=== PATIENT | male | born 1995 | race African-American/Black ===

== ENCOUNTER 2024-03-23 16:48 | Emergency (ER) | payer BC ==
[~2024-03-23] VITALS: Ht 175.3 cm; Wt 70.0 kg
[2024-03-23 16:56] VITALS: O2SAT 96
[2024-03-23 17:19] LABS: EOSINOPHILS % 0.7 % (0.0-5.0); HEMATOCRIT. 44.9 % (42.0-52.0); HEMOGLOBIN. 14.9 g/dL (14.0-18.0); LYMPHOCYTES % 30.8 % (20.0-50.0); MEAN CORPUSCULAR HEMOGLOBIN 28.2 pg (28.0-32.0); MEAN CORPUSCULAR HGB CONC 33.3 g/dL (31.0-37.0); MEAN CORPUSCULAR VOLUME 84.5 fL (80.0-94.0); MEAN PLATELET VOLUME 9.4 fl (7.4-10.4); NEUTROPHILS % 54.5 % (40.0-76.0); PLATELET 222 x1000/uL (130-400); RED BLOOD CELL COUNT 5.31 mill/uL (4.7-6.1); RED CELL DISTRIBUTION WIDTH 13.6 % (11.6-14.6); WHITE BLOOD COUNT 5.3 x1000/uL (4.5-11.0)
[2024-03-23] MEDS: LACTATED RINGERS 1,000 ML IV SCH (17:19)
[2024-03-23 17:27] LABS: CHLORIDE 107 mEq/L (98-107); SODIUM 140 mEq/L (136-145)
[2024-03-23 17:28] LABS: CALCIUM 9.5 mg/dL (8.7-10.4); CARBON DIOXIDE 29 mEq/L (21-32)
[2024-03-23 17:33] LABS: CREATININE 1.2 mg/dL (0.6-1.3); GLUCOSE 86 mg/dL (70-105); UREA NITROGEN BLOOD 11 mg/dL (9-23)
[2024-03-23 17:35] LABS: ALANINE AMINOTRANSFERASE 22 IU/L (10-49); ALBUMIN 4.6 g/dL (3.2-4.8); ASPARTATE AMINOTRANSFERASE 19 IU/L (<34); BILIRUBIN TOTAL 0.6 mg/dL (0.1-1.0); PROTEIN TOTAL 7.2 g/dL (6.0-8.3)
[2024-03-23 17:49] VITALS: TEMP 98.4
[2024-03-23] MEDS: ACETAMINOPHEN 325MG TABLET PO ONE (17:49)
[2024-03-23 19:37] VITALS: BP 121/70; PULSE 80; RESP 14; O2SAT 100
== END 2024-03-23 19:43 | disposition home or self-care (01) ==
LOC: ER 16:48
DX: R55 Syncope and collapse (principal); R51.9 Headache, unspecified
CPT/HCPCS: 36415; 71045; 80053; 85025; 93005; 96360; 96361; 99285